=== PATIENT | female | born 1940 | race Caucasian/White ===

== ENCOUNTER 2016-04-19 16:35 | Emergency (ER) | payer OTHER, MEDICARE ==
[~2016-04-19] VITALS: Ht 157.5 cm; Wt 64.5 kg
[~2016-04-19 16:35] MED LIST: AMOXICILLIN875 MG PO; B-COMPLEX-VITA1 EACH PO; CITRACAL + D E1 EACH PO; LIPITOR40 MG PO; NEURONTIN100 MG PO; NEXIUM40 MG PO; NORCO 5/3251 TABLET PO; NORVASC5 MG PO; PERCOCET 5/31 TABLET PO; TYLENOL EXTRA500 MG PO; VITAMIN B122500 MCG PO; VITAMIN D-32000 UNI2 PO; ZOLOFT100 MG PO; ZYRTEC10 M2 PO
[2016-04-19 19:26] LABS: HEMATOCRIT 35.6 % (36.0-46.0); MCH 29.5 PG (29.0-34.0); MCHC 33.1 G/DL (30.0-36.0); MEAN PLAT.VOLUME 11.3 uM^3 (9.5-12.4); PLATELET COUNT 243 K/uL (156-360); RBC DIS.WIDTH-CV 13.5 % (11.8-14.6)
[2016-04-19 19:34] LABS: CHLORIDE 104 mEq/L (99-109); POTASSIUM 4.1 mEq/L (3.7-5.4); SODIUM 140 mEq/L (136-147)
[2016-04-19 19:35] LABS: GLUCOSE 127 mg/dL (70-99)
[2016-04-19 19:37] LABS: ANION GAP 10 MEQ/L (2-14)
[2016-04-19 19:39] LABS: GFR ESTIMATE (CALCULATED) > 59 mL/min/
[2016-04-19 19:40] LABS: UREA NITROGEN (BUN) 18 mg/dL (9-23)
[2016-04-19 19:47] LABS: TROP-I INTERPRETATION NEGATIVE; TROPONIN-I < 0.01 ng/mL (0.0-0.30)
[2016-04-19] MEDS ORDERED: ULTRAM50 MG PO (19:51)
[2016-04-19] MEDS ORDERED: FLEXERIL10 MG PO (19:51)
[2016-04-19 20:03] VITALS: BP 124/56
== END 2016-04-19 20:04 | disposition home or self-care (01) ==
LOC: RME 16:35 → EME 16:35 → RME 20:04
PROVIDERS: Nurse Practitioner Family
DX: S70.01XA Contusion of right hip, initial encounter (principal); M54.5 Low back pain; M79.604 Pain in right leg; W18.11XA Fall from or off toilet without subsequent striking against object, initial encounter; Y92.002 Bathroom of unspecified non-institutional (private) residence as the place of occurrence of the external cause; I10 Essential (primary) hypertension; Z88.6 Allergy status to analgesic agent
CPT/HCPCS: 71010; 72100; 73502; 73552; 80048; 81003; 84484; 85027; 93005; 99281; 99284